=== PATIENT | male | born 1955 | race Caucasian/White ===

== ENCOUNTER 2017-01-23 03:55 | Emergency (ER) | payer BC, OTHER ==
--- NOTE | 2017-01-23 05:09 | EDM.PDOC ---
ED HPI GENERAL MEDICAL PROBLEM - General Chief Complaint: General Stated Complaint: DIARRHEA LIGHT HEADED Time Seen by Provider: 01/23/17 04:24 Source of Information: Reports: Patient, RN notes reviewed - History of Present Illness INITIAL COMMENTS - FREE TEXT/NARRATIVE: 61-year-old gentleman comes in with nonspecific dizziness. He is having some trouble with what sounds like sciatic-type discomfort of his left lower extremity so got up several times during the night to try walk around a bit. With this he then started feeling weak lightheaded and dizzy. States even started breaking out in a sweat at one point. No chest pain or palpitations. He also was ill with vomiting and diarrhea several days ago. The vomiting lasted for about 6 hours but the diarrhea lasted for about 2 days. He then yesterday after eating he would have some mild diarrhea but not near as severe as what he had for the preceding 2 days. He did have intermittent abdominal cramping associated with that primarily after eating or drinking. At all now is much better. He states he also did have fever and chills and that also is gone. - Related Data Allergies Allergy/AdvReac Type Severity Reaction Status Date / Time erythromycin base Allergy Cannot Verified 01/23/17 04:03 Remember Home Meds: Home Meds Lisinopril [Prinivil] 01/23/17 [History] Pravastatin [Pravachol] 01/23/17 [History] Past Medical History - Past Health History Medical/Surgical History: Denies Medical/Surgical History Cardiovascular History: Reports: Hypertension - Past Surgical History Musculoskeletal Surgical History: Reports: Shoulder surgery Social & Family History - Tobacco Use Smoking Status *Q: Never Smoker ED ROS GENERAL - Review of Systems Review Of Systems: See Below Constitutional: Reports: fever (Gone), chills, diaphoresis (Gone) HEENT: Denies: Throat pain, Vision change Respiratory: Denies: Shortness of Breath Cardiovascular: Denies: Chest pain GI/Abdominal: Reports: Abdominal pain ( pain and cramping gone), Diarrhea ( Mostly gone), Nausea, Vomiting (Gone) Musculoskeletal: Reports: leg pain (Intermittent left leg pain) Skin: Denies: rash Neurological: Denies: Numbness, Tingling, Trouble Speaking, Difficulty Walking, Weakness ED EXAM, GENERAL - Physical Exam Exam: See Below General Appearance: alert, no apparent distress Eye Exam: bilateral eye: PERRL Throat/Mouth: Normal inspection, Other (Mucosa is somewhat dry) Head: atraumatic. No: facial swelling Neck: supple, full range of motion Respiratory/Chest: no respiratory distress, lungs clear, normal breath sounds Cardiovascular: regular rate, rhythm GI/Abdominal: soft, non tender. No: guarding Extremities: normal inspection, normal range of motion. No: pedal edema, leg pain Neurological: alert, oriented, no motor/sensory deficits, other (Finger to nose testing normal) Skin Exam: Warm, Dry, Normal color EKG INTERPRETATION EKG Date: 01/23/17 Rhythm: NSR [place]: normal P-wave: present QRS: other (He does have Q waves in V2) ST-T: normal Course - Vital Signs Last Recorded V/S: Last Vital Signs Temp 98.5 F 01/23/17 04:04 Pulse 65 01/23/17 06:39 Resp 18 01/23/17 04:04 BP 167/83 H 01/23/17 06:39 Pulse Ox 100 01/23/17 04:04 Orthostatic Blood Pressure [ 163/100 Standing] Orthostatic Blood Pressure [ 168/90 Sitting] - Orders/Labs/Meds Orders: Active Orders 24 hr Category Date Time Status EKG 12 Lead [EKG Documentation Completion] [RC] STAT Care 01/23/17 04:38 Active Peripheral IV Care [RC] . DIRECTED Care 01/23/17 06:02 Active Sodium Chloride 0.9% [Normal Saline] 1,000 ml Med 01/23/17 06:15 Active IV ONETIME Sodium Chloride 0.9% [Saline Flush] Med 01/23/17 06:02 Active 10 ml FLUSH ASDIRECTED PRN Peripheral IV Insertion Adult [OM.PC] Stat Oth 01/23/17 06:02 Ordered Medication Orders Sodium Chloride (Normal Saline) 1,000 mls @ 999 mls/hr IV ONETIME MATHIEU Last Admin: 01/23/17 06:15 Dose: 999 mls/hr Sodium Chloride (Saline Flush) 10 ml FLUSH ASDIRECTED PRN PRN Reason: Keep Vein Open Last Admin: 01/23/17 06:09 Dose: 10 ml Labs: Laboratory Tests 01/23/17 01/23/17 01/23/17 Range/Units 04:46 04:46 04:46 WBC 7.35 (4.23-9.07) K/mm3 RBC 5.31 (4.63-6.08) M/mm3 Hgb 15.7 (13.7-17.5) gm/L Hct 45.3 (40.1-51.0) % MCV 85.3 (79.0-92.2) fl MCH 29.6 (25.7-32.2) pg MCHC 34.7 (32.2-35.5) g/dl RDW Std Deviation 41.3 (35.1-43.9) fL Plt Count 188 (163-337) K/mm3 MPV 9.7 (9.4-12.3) fl Neut % (Auto) 52.3 (34.0-67.9) % Lymph % (Auto) 30.1 (21.8-53.1) % [place] % (Auto) 13.2 H (5.3-12.2) % Eos % (Auto) 3.1 (0.8-7.0) Baso % (Auto) 1.0 (0.1-1.2) % Neut # (Auto) 3.85 (1.78-5.38) K/mm3 Lymph # (Auto) 2.21 (1.32-3.57) K/mm3 [place] # (Auto) 0.97 H (0.30-0.82) K/mm3 Eos # (Auto) 0.23 (0.04-0.54) K/mm3 Baso # (Auto) 0.07 (0.01-0.08) K/mm3 Manual Slide Review Normal smear Sodium 140 (136-145) mEq/L Potassium 3.1 L (3.5-5.1) mEq/L Chloride 105 (98-107) mEq/L Carbon Dioxide 21 (21-32) mEq/L Anion Gap 17.1 H (5-15) BUN 19 H (7-18) mg/dL Creatinine 1.2 (0.7-1.3) mg/dL Est Cr Clr Drug Dosing 56.86 mL/min Estimated GFR (MDRD) > 60 (>60) mL/min BUN/Creatinine Ratio 15.8 (14-18) Glucose 130 H (80-115) mg/dL Calcium 8.3 L (8.5-10.1) mg/dL Total Bilirubin 0.7 (0.2-1.0) mg/dL AST 39 H (15-37) U/L ALT 71 H (16-63) U/L Alkaline Phosphatase 57 (46-116) U/L Troponin I 0.021 (0.00-0.056) ng/mL Total Protein 6.8 (6.4-8.2) g/dl Albumin 3.3 L (3.4-5.0) g/dl Globulin 3.5 gm/dL Albumin/Globulin Ratio 0.9 L (1-2) 01/23/17 Range/Units 06:50 WBC (4.23-9.07) K/mm3 RBC (4.63-6.08) M/mm3 Hgb (13.7-17.5) gm/L Hct (40.1-51.0) % MCV (79.0-92.2) fl MCH (25.7-32.2) pg MCHC (32.2-35.5) g/dl RDW Std Deviation (35.1-43.9) fL Plt Count (163-337) K/mm3 MPV (9.4-12.3) fl Neut % (Auto) (34.0-67.9) % Lymph % (Auto) (21.8-53.1) % [place] % (Auto) (5.3-12.2) % Eos % (Auto) (0.8-7.0) Baso % (Auto) (0.1-1.2) % Neut # (Auto) (1.78-5.38) K/mm3 Lymph # (Auto) (1.32-3.57) K/mm3 [place] # (Auto) (0.30-0.82) K/mm3 Eos # (Auto) (0.04-0.54) K/mm3 Baso # (Auto) (0.01-0.08) K/mm3 Manual Slide Review Sodium (136-145) mEq/L Potassium (3.5-5.1) mEq/L Chloride (98-107) mEq/L Carbon Dioxide (21-32) mEq/L Anion Gap (5-15) BUN (7-18) mg/dL Creatinine (0.7-1.3) mg/dL Est Cr Clr Drug Dosing mL/min Estimated GFR (MDRD) (>60) mL/min BUN/Creatinine Ratio (14-18) Glucose (80-115) mg/dL Calcium (8.5-10.1) mg/dL Total Bilirubin (0.2-1.0) mg/dL AST (15-37) U/L ALT (16-63) U/L Alkaline Phosphatase (46-116) U/L Troponin I < 0.017 (0.00-0.056) ng/mL Total Protein (6.4-8.2) g/dl Albumin (3.4-5.0) g/dl Globulin gm/dL Albumin/Globulin Ratio (1-2) Meds: Medications Generic Name Dose Route Start Last Admin Trade Name Freq PRN Reason Stop Dose Admin Sodium Chloride 1,000 mls @ 999 mls/hr 01/23/17 06:15 01/23/17 06:15 Normal Saline IV 999 mls/hr ONETIME MATHIEU Administration Sodium Chloride 10 ml 01/23/17 06:02 01/23/17 06:09 Saline Flush FLUSH 10 ml ASDIRECTED PRN Administration Keep Vein Open Discontinued Medications Generic Name Dose Route Start Last Admin Trade Name Freq PRN Reason Stop Dose Admin Metoprolol Tartrate 50 mg 01/23/17 06:34 01/23/17 06:39 Lopressor PO 01/23/17 06:35 50 mg ONETIME ONE Administration - Re-Assessments/Exams Free Text/Narrative Re-Assessment/Exam: 01/23/17 06:12 his troponin came back at 0.017. Bicarbonate mildly low, anion gap moderately elevated secondary to his recent vomiting diarrhea. Also potassium moderately low at 3.1 also likely affected by his recent vomiting diarrhea. He did have been drinking water all awaiting labs. He states this has made his stomach feel more "queasy". I'm going to do a repeat troponin so will give IV normal saline during that time. To help get him better hydrated. 01/23/17 07:38. Repeat troponin did come back negative. I did spend considerable time visiting with patient discussing risk factors for cardiac disease. He does have a strong family history for cardiac disease. He is worried about his heart. He is carrying 25-30 extra pounds. Discharge instructions as documented Departure - Departure Time of Disposition: 07:53 Disposition: Home, Self-Care 01 Condition: fair Clinical Impression: Dehydration, Dizziness Diarrhea Qualifiers: Diarrhea type: unspecified type Qualified Code(s): R19.7 - Diarrhea, unspecified Forms: ED Department Discharge Additional Instructions: Continue current meds, low carb and sugar cardiac diet, try eat more fruit and vegetable, research the [facility] diet to look at a diet with some excellent guidelines, try get a regular exercise program going. See Dr. Nelson in followup, call today for appointment. Return to ED as needed - My Orders Last 24 Hours: My Active Orders 01/23/17 04:38 EKG 12 Lead [EKG Documentation Completion] [RC] STAT 01/23/17 06:02 Peripheral IV Care [RC] . DIRECTED Sodium Chloride 0.9% [Saline Flush] 10 ml FLUSH ASDIRECTED PRN Peripheral IV Insertion Adult [OM.PC] Stat 01/23/17 06:15 Sodium Chloride 0.9% [Normal Saline] 1,000 ml IV ONETIME - Assessment/Plan Last 24 Hours: My Active Orders 01/23/17 04:38 EKG 12 Lead [EKG Documentation Completion] [RC] STAT 01/23/17 06:02 Peripheral IV Care [RC] . DIRECTED Sodium Chloride 0.9% [Saline Flush] 10 ml FLUSH ASDIRECTED PRN Peripheral IV Insertion Adult [OM.PC] Stat 01/23/17 06:15 Sodium Chloride 0.9% [Normal Saline] 1,000 ml IV ONETIME
[2017-01-23] MEDS ORDERED: Sodium Chloride 0.9% 10 ML Syringe FLUSH PRN (06:02)
[2017-01-23] MEDS ORDERED: Sodium Chloride 0.9% 1,000 ML IV SCH (06:15)
[2017-01-23] MEDS ORDERED: Metoprolol Tartrate 50 MG Tab PO ONE (06:34)
[2017-01-23 06:40] VITALS: BP 167/83
== END 2017-01-23 08:05 | disposition home or self-care (01) ==
LOC: JD.ED 03:55
DX: R19.7 Diarrhea, unspecified (principal); R42 Dizziness and giddiness; E86.0 Dehydration; I10 Essential (primary) hypertension; Z98.890 Other specified postprocedural states; Z88.1 Allergy status to other antibiotic agents
CPT/HCPCS: 36415; 80053; 84484; 85025; 93005; 96360; 99284; A9270; J7040; J7050

== ENCOUNTER 2017-03-19 17:25 | Emergency (ER) | payer OTHER ==
[2017-03-19 17:38] VITALS: BP 173/89
[2017-03-19] MEDS ORDERED: Sodium Chloride 0.9% 10 ML Syringe FLUSH PRN (18:24)
--- NOTE | 2017-03-19 18:40 | EDM.PDOC ---
ED HPI GENERAL MEDICAL PROBLEM - General Chief Complaint: Neurological Problem Stated Complaint: DIZZY/ SWEATY Time Seen by Provider: 03/19/17 18:10 Source of Information: Reports: Patient, RN Notes Reviewed History Limitations: Reports: No Limitations - History of Present Illness INITIAL COMMENTS - FREE TEXT/NARRATIVE: 61 year old male presents to the ED with complaints of headache, vision changes , and feeling like he may pass out. The symptoms are intermittent. The occurred several times today while he was driving. They seem to get worse when going from sitting to standing. He gets diaphoretic with he has the episodes. He denies vertigo type symptoms. He had a brief episode of chest pain last week which resolved quickly on its own. He otherwise denies chest pain, shortness of breath or palpitations. He reports "weird feeling" to his left arm and left leg that is also intermittent. No weakness in his extremities, slurred speech, confusion, difficult swallowing, facial droop, drooling. He took two doses of aspirin today when he was experiencing the symptoms. He has a history of hypertension but no history of CAD or [place]. He has a family history of CAD. His father had a CABG. He has never smoked. He has no lower extremity edema. He has no additional cardiopulmonary history. He says he's had similar symptoms intermittently for the past few years. He says the symptoms seem to come on with stress. The symptoms have never been this frequent or persistent. During history he was initially symptom free. However, he reported that symptoms worsened when going from laying back to sitting. He seemed to get anxious as we talked about diagnostic tests and further workup. Left Neck Pain Score (Numeric/FACES): 3 - Related Data Allergies Allergy/AdvReac Type Severity Reaction Status Date / Time erythromycin base Allergy Cannot Verified 03/19/17 17:38 Remember Home Meds: Home Meds Lisinopril [Prinivil] 10 mg PO DAILY 01/23/17 [History] Pravastatin [Pravachol] 20 mg PO DAILY 01/23/17 [History] Calcium Carbonate/Vitamin D3 [Calcium 500 + Vit D Caplet] 1 mg PO DAILY [History] Gabapentin [Neurontin] 200 mg PO BEDTIME 03/19/17 [History] Multivitamin [Multivitamins] 1 each PO DAILY 03/19/17 [History] Past Medical History - Past Health History Medical/Surgical History: Denies Medical/Surgical History Cardiovascular History: Reports: High Cholesterol, Hypertension Endocrine/Metabolic History: Reports: Other (See Below) Other Endocrine/Metabolic History: prediabetes - Past Surgical History Musculoskeletal Surgical History: Reports: Shoulder Surgery Social & Family History - Tobacco Use Smoking Status *Q: Former Smoker Used Tobacco, but Quit: Yes Month Tobacco Last Used: 1999 - Caffeine Use Caffeine Use: Reports: Coffee - Recreational Drug Use Recreational Drug Use: No ED ROS GENERAL - Review of Systems Review Of Systems: See Below Constitutional: Reports: Diaphoresis. Denies: Fever, Chills HEENT: Reports: Vision Change. Denies: Vertigo Respiratory: Reports: No Symptoms. Denies: Shortness of Breath, Cough Cardiovascular: Reports: Chest Pain, Lightheadedness. Denies: Dyspnea on Exertion, Edema, Orthopnea, Palpitations, PND GI/Abdominal: Reports: No Symptoms. Denies: Abdominal Pain, Nausea, Vomiting Neurological: Reports: Dizziness, Headache, Other (near-syncope). Denies: Confusion, Numbness, Paresthesia, Tingling, Difficulty Walking, Weakness - Physical Exam Exam: See Below Exam Limited By: No Limitations General Appearance: Alert, WD/WN, No Apparent Distress, Anxious Eye Exam: Bilateral Eye: EOMI, PERRL Ears: Normal External Exam, Normal Canal, Normal TMs Head Exam: Atraumatic, Normocephalic Neck: Normal Inspection, Supple, Non-Tender, Full Range of Motion Respiratory/Chest: No Respiratory Distress, Lungs Clear, Normal Breath Sounds, No Accessory Muscle Use Cardiovascular: Normal Peripheral Pulses, Regular Rate, Rhythm, No Edema, No Murmur GI/Abdominal: Normal Bowel Sounds, Soft, Non-Tender Neuro Exam (Abbreviated): Alert, Oriented, CN II-XII Intact, Normal Cognition, Normal Gait, No Motor/Sensory Deficits, Other (cerebellar testing is intact) Extremities: Normal Inspection, No Pedal Edema Psychiatric: Anxious Skin Exam: Warm, Dry, Intact EKG INTERPRETATION EKG Date: 03/19/17 Time: 17:32 Rhythm: NSR Rate (Beats/Min): 80 [place]: Normal P-Wave: Present QRS: Normal ST-T: Normal QT: Normal EKG Interpretation Comments: EKG read by Dr. Farmer. Non-specific q wave in III. Course - Vital Signs Last Recorded V/S: Last Vital Signs Temp 97.8 F 03/19/17 17:31 Pulse 83 03/19/17 17:31 Resp 16 03/19/17 17:31 BP 173/89 H 03/19/17 17:31 Pulse Ox 97 03/19/17 17:31 Orthostatic Blood Pressure [ 168/78 Standing] Orthostatic Blood Pressure [ 166/95 Sitting] Orthostatic Blood Pressure [ 149/85 Supine] - Orders/Labs/Meds Orders: Active Orders 24 hr Category Date Time Status Cardiac Monitoring [RC] . DIRECTED Care 03/19/17 18:24 Active EKG 12 Lead [EKG Documentation Completion] [RC] STAT Care 03/19/17 17:30 Active Orthostatic Vital Signs [RC] ASDIRECTED Care 03/19/17 18:24 Active Peripheral IV Care [RC] . DIRECTED Care 03/19/17 18:24 Active Peripheral IV Insertion Adult [OM.PC] Stat Oth 03/19/17 18:24 Ordered Labs: Laboratory Tests 03/19/17 03/19/17 03/19/17 Range/Units 17:40 17:40 17:42 WBC 9.82 H (4.23-9.07) K/mm3 RBC 5.25 (4.63-6.08) M/mm3 Hgb 16.0 (13.7-17.5) gm/L Hct 45.5 (40.1-51.0) % MCV 86.7 (79.0-92.2) fl MCH 30.5 (25.7-32.2) pg MCHC 35.2 (32.2-35.5) g/dl RDW Std Deviation 41.4 (35.1-43.9) fL Plt Count 234 (163-337) K/mm3 MPV 10.4 (9.4-12.3) fl Neut % (Auto) 57.5 (34.0-67.9) % Lymph % (Auto) 32.6 (21.8-53.1) % [place] % (Auto) 7.5 (5.3-12.2) % Eos % (Auto) 1.8 (0.8-7.0) Baso % (Auto) 0.4 (0.1-1.2) % Neut # (Auto) 5.64 H (1.78-5.38) K/mm3 Lymph # (Auto) 3.20 (1.32-3.57) K/mm3 [place] # (Auto) 0.74 (0.30-0.82) K/mm3 Eos # (Auto) 0.18 (0.04-0.54) K/mm3 Baso # (Auto) 0.04 (0.01-0.08) K/mm3 Sodium 142 (136-145) mEq/L Potassium 3.1 L (3.5-5.1) mEq/L Chloride 104 (98-107) mEq/L Carbon Dioxide 25 (21-32) mEq/L Anion Gap 16.1 H (5-15) BUN 16 (7-18) mg/dL Creatinine 1.3 (0.7-1.3) mg/dL Est Cr Clr Drug Dosing 52.49 mL/min Estimated GFR (MDRD) 56 (>60) mL/min BUN/Creatinine Ratio 12.3 L (14-18) Glucose 118 H (80-115) mg/dL POC Glucose 146 H (80-115) mg/dL Calcium 9.6 (8.5-10.1) mg/dL Total Bilirubin 0.5 (0.2-1.0) mg/dL AST 40 H (15-37) U/L ALT 58 (16-63) U/L Alkaline Phosphatase 59 (46-116) U/L Troponin I < 0.017 (0.00-0.056) ng/mL Total Protein 7.7 (6.4-8.2) g/dl Albumin 4.0 (3.4-5.0) g/dl Globulin 3.7 gm/dL Albumin/Globulin Ratio 1.1 (1-2) TSH 3rd Generation 1.701 (0.358-3.74) uIU/mL Meds: Medications Discontinued Medications Generic Name Dose Route Start Last Admin Trade Name Freq PRN Reason Stop Dose Admin Potassium Chloride 20 meq 03/19/17 19:18 03/19/17 19:46 Klor-Con M20 PO 03/19/17 19:19 Not Given ONETIME ONE Sodium Chloride 10 ml 03/19/17 18:24 03/19/17 18:27 Saline Flush FLUSH 10 ml ASDIRECTED PRN Administration Keep Vein Open - Re-Assessments/Exams Free Text/Narrative Re-Assessment/Exam: Initially discussed case with Dr. Farmer who recommends basic labs, cardiac workup and head CT. CBC is normal. CMP reveals Na 142, K 3.1, anion gap of 16. Troponin is WNL. TSH is also normal. EKG is normal. Head CT is negative for acute findings. Potassium 20meq PO ordered but patient declined. The cause of the patient's symptoms is unclear. His symptoms are intermittent and seem to possibly have an anxiety component but the patient denies anxiety. I explained that his cardiac and neurologic workups today are normal but that he will need further outpatient evaluation if his symptoms persist. He was instructed to call Dr. Nelson's office and have an ER follow-up this week. I recommended further outpatient cardiac workup including an echocardiogram. He was instructed to return if symptoms worsen or with any new symptoms. Departure - Departure Time of Disposition: 19:28 Disposition: Home, Self-Care 01 Condition: Good Clinical Impression: Near syncope - Discharge Information Instructions: Near-Syncope, [id number] Referrals: Angel Ulloa MD [Primary Care Provider] - Forms: ED Department Discharge Additional Instructions: Your cardiac and neuro workup today was normal. I recommend continued outpatient follow-up to evaluate the cause of your symptoms. Follow-up with Dr. Nelson this week for recheck Return to ER if your symptoms worsen in anyway or if you develop chest pain, shortness of breath, palpitations. Return to ER with any new symptoms or additional concerns. See your eye doctor this week due to your vision changes. - My Orders Last 24 Hours: My Active Orders 03/19/17 18:24 Cardiac Monitoring [RC] . DIRECTED Orthostatic Vital Signs [RC] ASDIRECTED Peripheral IV Care [RC] . DIRECTED Peripheral IV Insertion Adult [OM.PC] Stat - Assessment/Plan Last 24 Hours: My Active Orders 03/19/17 18:24 Cardiac Monitoring [RC] . DIRECTED Orthostatic Vital Signs [RC] ASDIRECTED Peripheral IV Care [RC] . DIRECTED Peripheral IV Insertion Adult [OM.PC] Stat
[2017-03-19] MEDS ORDERED: Ondansetron 4 MG/2 ML SDV IVPUSH ONE (19:01)
--- NOTE | 2017-03-19 19:10 | CT ---
Head CT Technique: Multiple axial sections through the brain were obtained. Intravenous contrast was not utilized. Comparison: No previous intracranial imaging. Findings: Ventricles along with basal cisterns and sulci over the convexities are within normal limits for the patient's age. No abnormal parenchymal densities are seen. No evidence of intracranial hemorrhage. No midline shift or mass effect is seen. Visualized sinuses are clear. No acute calvarial abnormality is seen. Impression: 1. No acute intracranial abnormality is seen. Diagnostic code #1
[2017-03-19] MEDS ORDERED: Potassium Chloride 20 MEQ Tab.ER PO ONE (19:18)
== END 2017-03-19 19:36 | disposition home or self-care (01) ==
LOC: JD.ED 17:25
DX: R55 Syncope and collapse (principal); E78.00 Pure hypercholesterolemia, unspecified; I10 Essential (primary) hypertension; Z87.891 Personal history of nicotine dependence; Z88.1 Allergy status to other antibiotic agents; Z79.899 Other long term (current) drug therapy
CPT/HCPCS: 36415; 70450; 80053; 82962; 84443; 84484; 85025; 93005; 99285; J7050; 99284

== ENCOUNTER 2018-03-05 10:30 | Emergency (ER) | payer OTHER ==
[2018-03-05 10:44] VITALS: BP 159/94
[2018-03-05] MEDS ORDERED: Sodium Chloride 0.9% 10 ML Syringe FLUSH PRN (10:58)
--- NOTE | 2018-03-05 12:03 | EDM.PDOC ---
ED HPI GENERAL MEDICAL PROBLEM - General Chief Complaint: Cardiovascular Problem Stated Complaint: DIZZY SWEATING Time Seen by Provider: 03/05/18 10:43 Source of Information: Reports: Patient History Limitations: Reports: No Limitations - History of Present Illness INITIAL COMMENTS - FREE TEXT/NARRATIVE: The patient presents with being lightheaded and diaphoretic. This started this morning and he is better now. He said this same thing happened last week Monday on his way to work. He works in [place] and got lightheaded and diaphoretic. He drove himself to [facility] in [place]. The did an EKG and felt he needed to go to the ER in [place]. His brother drove him there and they did a complete work up to include an EKG and labs. He was told his EKG looked good and his troponin was normal. He was asked to stay or return for a second troponin but he did not. He went back to work and did good through the weekend. This morning he was going to go to work and the same thing happened. He laid down and felt better after that. He came to be evaluated and his symptoms were gone. He did not have any chest pain or shortness of breath. He has no headache, vision changes, abdominal pain or vomiting. He did have a little nausea. He did have some dizziness about a year ago and it ended up being vertigo. He has a history of HTN, hypercholesterolemia, and he quit smoking 6months ago. His father has heart disease. Onset: Sudden Duration: Hour(s): Severity: Moderate Improves with: Reports: None Worsens with: Reports: None Associated Symptoms: Reports: Nausea/Vomiting. Denies: Chest Pain, Cough, Fever /Chills, Headaches, Shortness of Breath - Related Data Allergies Allergy/AdvReac Type Severity Reaction Status Date / Time erythromycin base Allergy Cannot Verified 03/05/18 10:44 Remember Home Meds: Home Meds Pravastatin [Pravachol] 20 mg PO DAILY 01/23/17 [History] Calcium Carbonate/Vitamin D3 [Calcium 500 + Vit D Caplet] 1 mg PO DAILY [History] Gabapentin [Neurontin] 200 mg PO BEDTIME 03/19/17 [History] Multivitamin [Multivitamins] 1 each PO DAILY 03/19/17 [History] Losartan/Hydrochlorothiazide [Hyzaar 50-12.5 Tablet] 1 tab PO DAILY 03/05/18 [ History] Past Medical History - Past Health History Medical/Surgical History: Denies Medical/Surgical History Cardiovascular History: Reports: High Cholesterol, Hypertension Endocrine/Metabolic History: Reports: Other (See Below) Other Endocrine/Metabolic History: prediabetes - Past Surgical History Musculoskeletal Surgical History: Reports: Shoulder Surgery Social & Family History - Family History Family Medical History: Noncontributory - Tobacco Use Smoking Status *Q: Former Smoker Used Tobacco, but Quit: Yes Month/Year Tobacco Last Used: 2000 - Caffeine Use Caffeine Use: Reports: Coffee - Recreational Drug Use Recreational Drug Use: No ED ROS GENERAL - Review of Systems Review Of Systems: See Below Constitutional: Reports: No Symptoms HEENT: Reports: No Symptoms Respiratory: Reports: No Symptoms Cardiovascular: Reports: Lightheadedness. Denies: Chest Pain Endocrine: Reports: No Symptoms GI/Abdominal: Reports: Nausea. Denies: Abdominal Pain, Vomiting : Reports: No Symptoms Musculoskeletal: Reports: No Symptoms ED EXAM, GENERAL - Physical Exam Exam: See Below Exam Limited By: No Limitations General Appearance: Alert, No Apparent Distress Ears: Normal External Exam Nose: Normal Inspection Head: Atraumatic, Normocephalic Neck: Normal Inspection Respiratory/Chest: No Respiratory Distress, Lungs Clear, Normal Breath Sounds Cardiovascular: Regular Rate, Rhythm, No Edema, No Murmur GI/Abdominal: Soft, Non-Tender, No Organomegaly, No Mass Back Exam: Normal Inspection Extremities: Normal Inspection, Non-Tender Neurological: Alert, Oriented, No Motor/Sensory Deficits Course - Vital Signs Last Recorded V/S: Last Vital Signs Temp 98.9 F 03/05/18 10:35 Pulse 105 H 03/05/18 10:35 Resp 17 03/05/18 10:35 BP 159/94 H 03/05/18 10:35 Pulse Ox 100 03/05/18 10:35 - Orders/Labs/Meds Orders: Active Orders 24 hr Category Date Time Status Cardiac Monitoring [RC] . DIRECTED Care 03/05/18 10:58 Active EKG Documentation Completion [RC] STAT Care 03/05/18 10:59 Active Peripheral IV Care [RC] . DIRECTED Care 03/05/18 10:59 Active Peripheral IV Insertion Adult [OM.PC] Stat Oth 03/05/18 10:58 Ordered Labs: Laboratory Tests 03/05/18 03/05/18 03/05/18 Range/Units 10:45 10:45 10:45 WBC 8.87 (4.23-9.07) K/mm3 RBC 5.79 (4.63-6.08) M/mm3 Hgb 17.0 (13.7-17.5) gm/L Hct 49.9 (40.1-51.0) % MCV 86.2 (79.0-92.2) fl MCH 29.4 (25.7-32.2) pg MCHC 34.1 (32.2-35.5) g/dl RDW Std Deviation 41.4 (35.1-43.9) fL Plt Count 239 (163-337) K/mm3 MPV 10.1 (9.4-12.3) fl Neut % (Auto) 48.2 (34.0-67.9) % Lymph % (Auto) 37.8 (21.8-53.1) % [place] % (Auto) 9.4 (5.3-12.2) % Eos % (Auto) 3.5 (0.8-7.0) Baso % (Auto) 0.8 (0.1-1.2) % Neut # (Auto) 4.28 (1.78-5.38) K/mm3 Lymph # (Auto) 3.35 (1.32-3.57) K/mm3 [place] # (Auto) 0.83 H (0.30-0.82) K/mm3 Eos # (Auto) 0.31 (0.04-0.54) K/mm3 Baso # (Auto) 0.07 (0.01-0.08) K/mm3 Sodium 139 (136-145) mEq/L Potassium 3.7 (3.5-5.1) mEq/L Chloride 103 (98-107) mEq/L Carbon Dioxide 26 (21-32) mEq/L Anion Gap 13.7 (5-15) BUN 19 H (7-18) mg/dL Creatinine 1.3 (0.7-1.3) mg/dL Est Cr Clr Drug Dosing 51.80 mL/min Estimated GFR (MDRD) 56 (>60) mL/min BUN/Creatinine Ratio 14.6 (14-18) Glucose 168 H (80-115) mg/dL Hemoglobin A1c 6.80 H (4.50-6.20) % Calcium 9.1 (8.5-10.1) mg/dL Magnesium 1.8 (1.8-2.4) mg/dl Total Bilirubin 0.4 (0.2-1.0) mg/dL AST 37 (15-37) U/L ALT 70 H (16-63) U/L Alkaline Phosphatase 69 (46-116) U/L Troponin I 0.023 (0.00-0.056) ng/mL Total Protein 7.6 (6.4-8.2) g/dl Albumin 3.6 (3.4-5.0) g/dl Globulin 4.0 gm/dL Albumin/Globulin Ratio 0.9 L (1-2) Meds: Medications Discontinued Medications Generic Name Dose Route Start Last Admin Trade Name Freq PRN Reason Stop Dose Admin Sodium Chloride 10 ml 03/05/18 10:58 03/05/18 11:06 Saline Flush FLUSH 10 ml ASDIRECTED PRN Administration Keep Vein Open - Re-Assessments/Exams Free Text/Narrative Re-Assessment/Exam: 03/06/18 07:44 I ordered an EKG and labs. 03/06/18 07:45 His EKG shows a NSR with no acute changes. His CBC looks good. His glucose was elevated at 168. His Hgb A1C was elevated at 6.8. His ALT is 70. His troponin is negative. He feels better. He does have a stress test ordered for in [place]. I called to see if we could get him in sooner and we could not get him in until the . I also wanted to put a holter monitor on him but he did not want that done. I called [facility] to see if I could get him in to do a CT of his heart for the calcium scoring and he had coffee this morning so they could not do it today but they could do it tomorrow. He did not want to wait until tomorrow. He was going to go back to work and keep his appointment on . Departure - Departure Time of Disposition: 13:30 Disposition: Home, Self-Care 01 Condition: Good Clinical Impression: Lightheaded, Diaphoresis Instructions: Dizziness, [id number] Referrals: Angel Ulloa MD [Primary Care Provider] - 2 Weeks Forms: ED Department Discharge Additional Instructions: Take your medication as prescribed. Follow up on for a stress test. Please return if you are worse. - My Orders Last 24 Hours: My Active Orders 03/05/18 10:58 Cardiac Monitoring [RC] . DIRECTED Peripheral IV Insertion Adult [OM.PC] Stat 03/05/18 10:59 EKG Documentation Completion [RC] STAT Peripheral IV Care [RC] . DIRECTED - Assessment/Plan Last 24 Hours: My Active Orders 03/05/18 10:58 Cardiac Monitoring [RC] . DIRECTED Peripheral IV Insertion Adult [OM.PC] Stat 03/05/18 10:59 EKG Documentation Completion [RC] STAT Peripheral IV Care [RC] . DIRECTED
== END 2018-03-05 13:57 | disposition home or self-care (01) ==
LOC: JD.ED 10:30
DX: R42 Dizziness and giddiness (principal); R61 Generalized hyperhidrosis; I10 Essential (primary) hypertension; E78.00 Pure hypercholesterolemia, unspecified; Z87.891 Personal history of nicotine dependence; Z79.899 Other long term (current) drug therapy; Z88.1 Allergy status to other antibiotic agents
CPT/HCPCS: 36415; 80053; 83036; 83735; 84484; 85025; 93005; 99284; J7050; 93010; 99283-25

== ENCOUNTER 2021-10-31 11:51 | Emergency (ER) | payer OTHER ==
[2021-10-31 12:25] VITALS: BP 178/112; PULSE 107
[2021-10-31 13:23] LABS: CORONAVIRUS COVID-19 NAA NEGATIVE (NEGATIVE)
== END 2021-10-31 14:09 | disposition home or self-care (01) ==
LOC: JD.ED 11:51
DX: J06.9 Acute upper respiratory infection, unspecified (principal); I10 Essential (primary) hypertension; E78.00 Pure hypercholesterolemia, unspecified; E11.9 Type 2 diabetes mellitus without complications; Z87.891 Personal history of nicotine dependence; Z88.1 Allergy status to other antibiotic agents; Z79.84 Long term (current) use of oral hypoglycemic drugs; Z79.899 Other long term (current) drug therapy; Z20.822 Contact with and (suspected) exposure to COVID-19
CPT/HCPCS: 0240U; 93005; 99283; 93010

== ENCOUNTER 2024-11-25 17:43 | Emergency (ER) | payer MEDICARE, OTHER ==
[2024-11-25] MEDS: Aspirin 81 MG Tab.Chew PO ONE (19:15)
[2024-11-25] MEDS: Heparin Sodium 5,000 Units/ML Vial IVPUSH ONE (19:40)
[2024-11-25] MEDS: Heparin Sodium/D5W 250 ML IV SCH (19:42)
[2024-11-25 23:48] VITALS: PULSE 102
[2024-11-25 23:49] VITALS: BP 173/119
== END 2024-11-25 23:00 ==
LOC: JD.ED 17:43
DX: I21.4 Non-ST elevation (NSTEMI) myocardial infarction (principal); I24.9 Acute ischemic heart disease, unspecified; E11.9 Type 2 diabetes mellitus without complications; I10 Essential (primary) hypertension; Z88.1 Allergy status to other antibiotic agents; Z79.84 Long term (current) use of oral hypoglycemic drugs; Z79.899 Other long term (current) drug therapy
CPT/HCPCS: 36415; 84484; 85049; 85730; 93005; 96365; 96366; 99285; A9270; J1644

== ENCOUNTER 2024-11-30 19:16 | Emergency (ER) | payer MEDICARE ==
[2024-11-30 20:43] LABS: BASOPHILS ABSOLUTE AUTO 0.1 K/mm3 (0.0-0.2); BASOPHILS PERCENT AUTO 0.9 % (0.0-1.0); EOSINOPHILS ABSOLUTE AUTO 0.6 K/mm3 (0.0-0.4); EOSINOPHILS PERCENT AUTO 6.3 % (0.0-6.0); HEMATOCRIT 45.3 % (42.0-52.0); HEMOGLOBIN 15.3 gm/dl (14.0-18.0); IMMATURE GRAN ABSOLUTE AUTO 0.04 K/mm3 (0.00-0.05); IMMATURE GRAN PERCENT AUTO 0.4 % (0.0-0.4); LYMPHOCYTES ABSOLUTE AUTO 3.1 K/mm3 (1.0-4.8); LYMPHOCYTES PERCENT AUTO 34.3 % (24.0-44.0); MEAN CORPUSCULAR HEMOGLOBIN 29.5 pg (28.0-32.0); MEAN CORPUSCULAR HGB CONC 33.8 g/dl (32.0-36.0); MEAN CORPUSCULAR VOLUME 87.3 fl (83.0-99.0); MEAN PLATELET VOLUME 10.3 fl (9.4-12.4); MONOCYTES ABSOLUTE AUTO 0.7 K/mm3 (0.0-0.8); NEUTROPHILS ABSOLUTE AUTO 4.5 K/mm3 (1.8-7.7); NEUTROPHILS PERCENT AUTO 50.1 % (41.0-71.0); PLATELET COUNT,PLT 231 K/mm3 (150-400); RED BLOOD CELL COUNT 5.19 M/mm3 (4.52-5.90); WHITE BLOOD CELL COUNT,WBC 9.05 K/mm3 (3.9-11.3)
[2024-11-30 21:00] LABS: INR 1.03; PROTHROMBIN TIME 10.9 SECONDS (9.7-12.0)
[2024-11-30 21:12] LABS: A/G RATIO 0.9 (1-2); ALBUMIN 3.4 g/dl (3.4-5.0); ANION GAP 14.3 (5-15); BILIRUBIN TOTAL 0.6 mg/dL (0.2-1.0); CALCIUM 9.4 mg/dL (8.5-10.1); CREATININE 1.4 mg/dL (0.7-1.3); EST CRCL DRUG DOSING (CG) 46.82 mL/min; POTASSIUM,K 4.3 mEq/L (3.5-5.1); PROTEIN TOTAL,TP 7.1 g/dl (6.4-8.2)
[2024-11-30] MEDS: Metoprolol Tartrate 25 MG Tab PO ONE (22:30)
[2024-11-30] MEDS ORDERED: Heparin Sodium/D5W 250 ML IV SCH (22:30)
[2024-11-30] MEDS: Aspirin 325 MG Tab.EC PO ONE (22:30)
[2024-12-01] MEDS: Heparin Sodium 5,000 Units/ML Vial IVPUSH ONE (00:53)
[2024-12-01] MEDS: Heparin Sodium/D5W 250 ML IV SCH (00:54)
[2024-12-01 03:09] VITALS: BP 135/85; PULSE 85
== END 2024-12-01 03:11 | disposition other institution (70) ==
LOC: JD.ED 19:16
DX: I21.4 Non-ST elevation (NSTEMI) myocardial infarction (principal); E78.00 Pure hypercholesterolemia, unspecified; I10 Essential (primary) hypertension; E11.9 Type 2 diabetes mellitus without complications; Z95.5 Presence of coronary angioplasty implant and graft; Z88.1 Allergy status to other antibiotic agents; Z79.84 Long term (current) use of oral hypoglycemic drugs; Z79.899 Other long term (current) drug therapy
CPT/HCPCS: 36415; 71045; 80053; 83690; 83880; 84484; 85025; 85610; 85730; 93005; 96365; 96366; 99285; A9270; J1644; 93010

== ENCOUNTER 2025-02-06 17:02 | Emergency (ER) | payer MEDICARE ==
[2025-02-06 18:14] VITALS: BP 152/66; PULSE 78
[2025-02-06 19:36] LABS: CORONAVIRUS COVID-19 NAA NEGATIVE (NEGATIVE); INFLUENZA A NAA NEGATIVE (NEGATIVE); RESPIRATORY SYNCYTIAL VIR NAA NEGATIVE (NEGATIVE)
== END 2025-02-06 19:45 | disposition home or self-care (01) ==
LOC: JD.ED 17:02
DX: J06.9 Acute upper respiratory infection, unspecified (principal); I10 Essential (primary) hypertension; E11.9 Type 2 diabetes mellitus without complications; Z88.1 Allergy status to other antibiotic agents; Z79.899 Other long term (current) drug therapy; E78.00 Pure hypercholesterolemia, unspecified; Z95.5 Presence of coronary angioplasty implant and graft
CPT/HCPCS: 0241U; 71045; 71045-26; 99283